=== PATIENT | female | born 2000 | race Caucasian/White ===

== ENCOUNTER 2020-01-01 12:29 | Emergency (ER) | payer BC ==
[2020-01-01 13:53] VITALS: BP 113/77
[2020-01-01] MEDS ORDERED: Albuterol HFA INHALER* 8 gm MDI INH ONE (14:18)
--- NOTE | 2020-01-01 14:25 | UC ---
Respiratory Complaint HPI - HPI Summary HPI Summary: 19 yo female with cough x 2 weeks wheezing/chest tightness no f/c no n/v/d + nasal congestion and post nasal drip - History of Current Complaint Chief Complaint: UCRespiratory Stated Complaint: COLD SYMP Time Seen by Provider: 01/01/20 13:59 Hx Obtained From: Patient Hx Last Menstrual Period: "... the end of November ..." Onset/Duration: Gradual Onset Timing: Constant Severity Initially: Moderate Severity Currently: Moderate Pain Intensity: 0 Pain Scale Used: 0-10 Numeric Character: Cough: Productive Aggravating Factors: Nothing Alleviating Factors: Nothing Associated Signs And Symptoms: Positive: Nasal Congestion, Sinus Discomfort - Allergies/Home Medications Allergies/Adverse Reactions: Allergies Allergy/AdvReac Type Severity Reaction Status Date / Time No Known Allergies Allergy Verified 01/01/20 13:48 Home Medications: Home Medications Albuterol HFA INHALER* [Ventolin HFA Inhaler*] 2 puff INH QID #1 mdi 01/01/20 [ Rx] Amoxicillin PO (*) [Amoxicillin 500 MG CAP*] 500 mg PO BID #14 cap 01/01/20 [Rx] Norethindr/Eth Estradiol(Nf) [Lo Loestrin Fe (NF)] 1 tab PO DAILY 01/01/20 [ History Confirmed 01/01/20] predniSONE 20 mg TAB [Deltasone 20 MG TAB*] 40 mg PO DAILY #8 tab 01/01/20 [Rx] PMH/Surg Hx/FS Hx/Imm Hx Previously Healthy: Yes - Surgical History Surgical History: Yes Surgery Procedure, Year, and Place: [place] [facility] - Family History Known Family History: Positive: Cardiac Disease, Hypertension, Diabetes, Respiratory Disease - asthma - Social History Alcohol Use: None Substance Use Type: None Smoking Status (MU): Never Smoked Tobacco Review of Systems All Other Systems Reviewed And Are Negative: Yes Constitutional: Positive: Negative Skin: Positive: Negative Eyes: Positive: Negative ENT: Positive: Sore Throat, Nasal Discharge, Sinus Congestion Respiratory: Positive: Cough, Other - wheezing Cardiovascular: Positive: Negative Gastrointestinal: Positive: Negative Genitourinary: Positive: Negative Motor: Positive: Negative Neurovascular: Positive: Negative Musculoskeletal: Positive: Negative Neurological/Mental Status: Positive: Negative Psychological: Positive: Negative Physical Exam Triage Information Reviewed: Yes Appearance: Well-Appearing, No Pain Distress, Well-Nourished Vital Signs: Initial Vital Signs Temp 98.4 F 01/01/20 13:47 Pulse 62 01/01/20 13:47 Resp 18 01/01/20 13:47 BP 113/77 01/01/20 13:47 Pulse Ox 99 01/01/20 13:47 Vital Signs Reviewed: Yes Eyes: Positive: Conjunctiva Clear ENT: Positive: Hearing grossly normal, Pharynx normal, Nasal congestion, Nasal drainage, Sinus tenderness, Uvula midline. Negative: Tonsillar swelling, Tonsillar exudate, Trismus, Muffled voice, Hoarse voice, Dental tenderness Neck: Positive: Supple, Nontender Respiratory: Positive: No respiratory distress, No accessory muscle use, Wheezing - with forced expiration Cardiovascular: Positive: RRR, No Murmur Abdomen Description: Positive: Nontender, No Organomegaly. Negative: CVA Tenderness (R), CVA Tenderness (L) Bowel Sounds: Positive: Present Musculoskeletal: Positive: ROM Intact Neurological: Positive: Alert, Muscle Tone Normal Psychological Exam: Normal Skin Exam: Normal Respiratory Course/Dx - Differential Dx/Diagnosis Provider Diagnosis: Acute bronchitis Discharge ED - Sign-Out/Discharge Documenting (check all that apply): Patient Departure All imaging exams completed and their final reports reviewed: No Studies - Discharge Plan Condition: Stable Disposition: HOME Prescriptions: Albuterol 2.5MG/3ML (0.083%)* [Ventolin 2.5 MG/3 ML NEB.GEORGES*] 2.5 mg INH QID PRN #1 [email or web address] PRN Reason: Wheezing predniSONE 20 mg TAB [Deltasone 20 MG TAB*] 40 mg PO DAILY #8 tab Patient Education Materials: Acute Bronchitis (ED), How to Use a Metered-Dose Inhaler and a Spacer (ED) Additional Instructions: recheck in 4 days if not markedly improved - Billing Disposition and Condition Condition: STABLE Disposition: Home
== END 2020-01-01 14:41 | disposition home or self-care (01) ==
LOC: UCCORT 12:29
DX: J20.9 Acute bronchitis, unspecified (principal); R09.81 Nasal congestion
CPT/HCPCS: 99203; A9270-GY; G0463; J7512